=== PATIENT | male | born 1940 | race Caucasian/White ===

== ENCOUNTER 2022-07-05 05:04 | Emergency (ER) | payer MEDICARE, MEDICAID, SELFPAY ==
[2022-07-05] VITALS (7 sets, daily range): BP systolic 122–159; BP diastolic 81–91; PULSE 101–120; RESP 12–25; TEMP 37.6; O2SAT 91–94; BMI 26.6
--- NOTE | 2022-07-05 05:09 | CTR_ITS ---
PROCEDURE INFORMATION: Exam: CT Cervical Spine Without Contrast Exam date and time: 07/05/2022 5:41 AM Age: 81 years old Clinical indication: Injury or trauma; Fall; Blunt trauma TECHNIQUE: Imaging protocol: Computed tomography of the cervical spine without contrast. Radiation optimization: All CT scans at this facility use at least one of these dose optimization techniques: automated exposure control; mA and/or kV adjustment per patient size (includes targeted exams where dose is matched to clinical indication); or iterative reconstruction. COMPARISON: CT head wo con* [id number] 07/05/2022 5:38 AM RADIATION DOSE METRICS: Total DLP (mGy-cm): 277.17 FINDINGS: Bones/joints: No acute fracture. Normal alignment. No significant disc protrusion. No severe spinal canal stenosis. Lungs: Lung apices are normal. Soft tissues: The prevertebral soft tissues are within normal limits. 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 This would be better evaluated sonographically. CT/CT cervical spin wo con* [id number] IMPRESSION: No acute findings.
--- NOTE | 2022-07-05 05:09 | CTR_ITS ---
PROCEDURE INFORMATION: Exam: CT Head Without Contrast Exam date and time: 07/05/2022 5:38 AM Age: 81 years old Clinical indication: Injury or trauma; Fall; Blunt trauma (contusions or hematomas); Consciousness not specified TECHNIQUE: Imaging protocol: Computed tomography of the head without contrast. Radiation optimization: All CT scans at this facility use at least one of these dose optimization techniques: automated exposure control; mA and/or kV adjustment per patient size (includes targeted exams where dose is matched to clinical indication); or iterative reconstruction. COMPARISON: No relevant prior studies available. RADIATION DOSE METRICS: Total DLP (mGy-cm): 1373.48 FINDINGS: Brain: There is no acute intracranial hemorrhage or mass effect. Mild diffuse volume loss is within the range of normal for patient age. There are small vessel ischemic changes within the periventricular and subcortical white matter, but the normal wolff/white matter delineation is maintained. 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 Cerebral ventricles: No ventriculomegaly. Paranasal sinuses: There is mild right sphenoid sinus mucosal thickening. There is polypoid mucosal thickening within the left sphenoid sinus. Mastoid air cells: Visualized mastoid air cells are well aerated. Bones/joints: Unremarkable. No acute fracture. Soft tissues: Unremarkable. CT/CT head wo con* [id number] IMPRESSION: No acute hemorrhage or calvarial fracture.
--- NOTE | 2022-07-05 05:10 | XRR_ITS ---
PROCEDURE INFORMATION: Exam: XR Chest Exam date and time: 07/05/2022 5:55 AM Age: 81 years old Clinical indication: Cough TECHNIQUE: Imaging protocol: Radiologic exam of the chest. Views: 1 view. COMPARISON: CT cervical spin wo con* [id number] 07/05/2022 5:41 AM FINDINGS: Lungs: There is a benign calcified granuloma in the left lung.. No consolidation. Pleural spaces: Unremarkable. No pleural effusion. No pneumothorax. Heart/Mediastinum: Unremarkable. No cardiomegaly. Bones/joints: Unremarkable. XR/XR chest 1V portable [id number] IMPRESSION: No acute findings.
--- NOTE | 2022-07-05 05:12 | W.ED.FALL ---
Documented by User: Kevon Pantoja MD 07/05/22 05:18 HPI - Fall General: Chief Complaint: Fall Stated Complaint: Fall,AMS Time Seen by Provider: 07/05/22 05:09 Source: EMS Mode of arrival: EMS Limitations: altered mental status History of Present Illness: 81-year-old male that per EMS lives at home with family family states he has been having a gradual decline over the last month or 2 with increasing confusion states he has had increasing weakness as well and a decreased appetite he had a fall this morning just before arrival complains of headache and neck pain from the fall no other injuries he has had a slight cough with low-grade fever Review of Systems General: Reports: ROS unobtainable due to mental status PFSH ED PFSH: Medical History (Updated 07/05/22 @ 10:59 by Kike Serrano DO) No pertinent past medical history Social History (Updated 07/05/22 @ 05:12 by Kevon Pantoja MD) Substance/Drug Use: never Physical Exam Const: COMMON NORMALS: negative for patient oriented x3 HENMT: COMMON NORMALS: normocephalic and atraumatic HEAD & SCALP: normocephalic and atraumatic Eye: COMMON NORMALS: Equal, round and reactive pupils present and EOMs intact bilaterally PUPIL: Yes Equal, round and reactive pupils present Neck/C-Spine: COMMON NORMALS: full ROM and supple Chest: COMMONS NORMALS: normal inspection of the chest and normal palpation of entire chest wall Resp: COMMON NORMALS: normal respiratory effort, No retractions, No use of accessory muscles and clear to auscultation bilaterally AUSCULTATION: clear to auscultation bilaterally Cardio: COMMON NORMALS: No murmurs present (Cardio) RATE: tachycardic RHYTHM: abnormal rhythm irregularly irregular GI: COMMON NORMALS: Normal to inspection, nondistended, normoactive bowel sounds present, Soft to palpation, non-tender and no masses PALPATION: Yes Soft to palpation Extremity: COMMON NORMALS: normal to inspection and full ROM Neuro: COMMON NORMALS: moves all extremities and no focal motor deficits; negative for patient oriented x3 Psych: COMMON NORMALS: cooperative; negative for mental status grossly normal Skin: COMMON NORMALS: no rashes or lesions noted and no wounds GENERAL SKIN EXAM: no rashes or lesions noted Course Vital Signs: Vital signs: Vital Signs Temperature 99.6 F 01/01/23 05:06 Pulse Rate 101 H 07/05/22 07:30 Respiratory Rate 20 H 07/05/22 07:30 Blood Pressure 122/81 07/05/22 07:30 Pulse Oximetry 93 07/05/22 07:30 Oxygen Delivery Me thod 07/05/22 07:30 MDM - Fall Lab Data 07/05/22 05:15 07/05/22 05:15 Radiology Impressions Cervical Spine CT 07/05/22 05:09 IMPRESSION: No acute findings. Head CT 07/05/22 05:09 IMPRESSION: No acute hemorrhage or calvarial fracture. Chest X-Ray 07/05/22 05:10 IMPRESSION: No acute findings. Laboratory Results WBC 10.2 10^3/uL (4.0-10.0) H 07/05/22 05:15 RBC 4.76 10^6/uL (4.1-5.3) 07/05/22 05:15 Hgb 13.3 g/dL (11.7-16.6) 07/05/22 05:15 Hct 40.5 % (42.0-52.0) L 07/05/22 05:15 MCV 85.1 fl (80-94) 07/05/22 05:15 MCH 27.9 pg (28.0-34.0) L 07/05/22 05:15 MCHC 32.8 g/dL (30.0-36.0) 07/05/22 05:15 RDW 12.4 % (12.1-15.1) 07/05/22 05:15 Plt Count 308 10^3/cmm (130-400) 07/05/22 05:15 MPV 8.7 fL (7.4-10.4) 07/05/22 05:15 Neut % (Auto) 81.6 % 07/05/22 05:15 Lymph % (Auto) 6.6 % 07/05/22 05:15 Grainger % (Auto) 9.1 % 07/05/22 05:15 Eos % (Auto) 0.0 % 07/05/22 05:15 Baso % (Auto) 0.3 % 07/05/22 05:15 Neut # (Auto) 8.30 10^3/uL (1.8-7.7) H 07/05/22 05:15 Lymph # (Auto) 0.7 10^3/uL (0.8-4.8) L 07/05/22 05:15 Grainger # (Auto) 0.9 10^3/uL (0.2-0.9) 07/05/22 05:15 Eos # (Auto) 0.0 10^3/uL (0.0-0.8) 07/05/22 05:15 Baso # (Auto) 0.0 10^3/uL (0.0-0.1) 07/05/22 05:15 Nucleated RBC % (auto) 0 % 07/05/22 05:15 Nucleated RBCs # 0.0 /100WBC 07/05/22 05:15 PT 15.60 SECONDS (12.1-14.9) H 07/05/22 05:15 INR 1.20 (0.8-1.2) 07/05/22 05:15 Sodium 128 mmol/L (136-145) L 07/05/22 05:15 Potassium 3.7 mmol/L (3.5-5.1) 07/05/22 05:15 Chloride 94 mmol/L (98-107) L 07/05/22 05:15 Carbon Dioxide 22 mmol/L (22-29) 07/05/22 05:15 Anion Gap 15.7 (5-19) 07/05/22 05:15 BUN 12 mg/dL (8-23) 07/05/22 05:15 Creatinine 0.7 mg/dL (0.7-1.2) 07/05/22 05:15 GFR Calculation Not Reportable 07/05/22 05:15 Glucose 111 mg/dL (65-115) 07/05/22 05:15 POC Glucose 103 mg/dL (70-110) 07/05/22 06:01 Calculated Osmolality 266 mOsm/kg (285-295) L 07/05/22 05:15 Lactate 1.5 mmol/L (0.5-2.2) 07/05/22 05:15 Calcium 8.4 mg/dL (8.5-10.5) L 07/05/22 05:15 Total Bilirubin 0.8 mg/dL (0.15-1.2) 07/05/22 05:15 AST 31 U/L (0-40) 07/05/22 05:15 ALT 23 U/L (0-41) 07/05/22 05:15 Alkaline Phosphatase 65 U/L (40-130) 07/05/22 05:15 Total Protein 6.2 g/dL (6.6-8.7) L 07/05/22 05:15 Albumin 3.4 g/dL (3.5-5.2) L 07/05/22 05:15 Globulin 2.8 g/dL (1.3-4.6) 07/05/22 05:15 Urine Color Yellow (Yellow) 07/05/22 08:10 Urine Appearance Clear (CLEAR) 07/05/22 08:10 Urine pH 6 (5-7) 07/05/22 08:10 Ur Specific Walton 1.015 (1.005-1.030) 07/05/22 08:10 Urine Protein Trace (Negative) 07/05/22 08:10 Urine Glucose (UA) Norm (Normal) 07/05/22 08:10 Urine Ketones 2+ (Negative) H 07/05/22 08:10 Urine Blood 2+ (Negative) H 07/05/22 08:10 Urine Nitrate Negative (Negative) 07/05/22 08:10 Urine Bilirubin Neg (Negative) 07/05/22 08:10 Urine Urobilinogen 8 mg/dL (Negative) H 07/05/22 08:10 Ur Leukocyte Esterase Negative (Negative) 07/05/22 08:10 Urine RBC 5-10 /hpf (0-2) H 07/05/22 08:10 Urine WBC 0-4 /hpf (0-5) H 07/05/22 08:10 Ur Squamous Epith Cells 0-4 /hpf (0-5) H 07/05/22 08:10 Amorphous Sediment Not Reportable 07/05/22 08:10 Urine Bacteria 1+ /hpf (NONE) H 07/05/22 08:10 Hyaline Casts 0-4 /lpf H 07/05/22 08:10 Urine Mucus 1+ /hpf 07/05/22 08:10 Influenza Type A Ag negative (Negative) 07/05/22 05:58 Influenza Type B Ag negative (Negative) 07/05/22 05:58 SARS-CoV-2 Ag (Rapid) negative (Negative) 07/05/22 05:58 EKG Data EKG 1: I personally reviewed and interpreted this EKG as follows: EKG interpretation date: 07/05/22 EKG interpretation time: 05:12 Interpretation: atrial flutter hr [address] or t wave abnormalities Discharge Plan Discharge Patient Disposition: Home Clinical Impression: Urinary tract infection, Frailty, Ground-level fall, Hyponatremia Prescriptions: New doxycycline hyclate 100 mg tablet 100 mg PO BID 10 Days Qty: 20 0RF Discharge Orders: Discharge ED (Routine); Ordered 07/05/22 Ordered By: Kike Serrano Referrals: Jhon Hale MD [Primary Care Provider] - Discharge Diet: Advance as tolerated and Regular Discharge Activity: Increase activity as tolerated and Use walker/crutches as instructed Patient Instructions: Opioid Safety, Pain Management Activity Restrictions/Additional Instructions: As we discussed we did not find anything of concern on your images of your head and neck that may have resulted from your fall. We also discussed with you potential continued observation in the hospital versus manage your condition at home and you have decided to go home. We have provided prescription for antibiotics to take for the next 10 days. We recommend using a cane or walker to help with your ambulation until you gain strength and mobility. If it anytime you develop worsening symptoms, other concerns return to this or the nearest emergency department. We recommend you eating a regular diet and salting your food at the table to help add extra sodium to your diet. Drink at least 2 quarts of water daily. Follow-up with your physician in the next 10-14 days. Coding Level of Care Code ED Supervisor Photocomposition for Chg Fwd Exam Comprehensive Documented by User: Kike Serrano DO 07/05/22 10:59 HPI - Fall General: Chief Complaint: Fall Stated Complaint: Fall,AMS Time Seen by Provider: 07/05/22 05:09 [facility] ED PFSH: Medical History (Updated 07/05/22 @ 10:59 by Kike eSrrano DO) No pertinent past medical history Social History (Updated 07/05/22 @ 05:12 by Kevon Pantoja MD) Substance/Drug Use: never Course ED course: Assumed care of this patient from Dr. Pantoja.. We reviewed his presentation and pending work-up. Reevaluation(s): Reevaluation #1: My independent review of his CT scan of his cervical spine did not reveal any obvious fracture etc. so cervical collar was removed. I did a interview of the patient and his family and had a cursory examination without any focal findings. I discussed that we are waiting on radiology interpretations etc. Appears to be hyponatremic and has had general decline and will likely need further observation and evaluation but we still waiting on his imaging results. Family reports that he is not been of the care physician for some time and is refused to seek additional medical care. He states that he has had no symptoms of focal weakness, abnormal mentation, difficulty with speech etc. Time: 07:54 Reevaluation #2: Patient remained stable alert and was appropriately interactive. No acute or new changes on repeat examination. Family remained in the room and very attentive to him. Time: 10:54 Vital Signs: Vital signs: Vital Signs Temperature 99.6 F 07/05/22 05:06 Pulse Rate 101 H 07/05/22 07:30 Respiratory Rate 20 H 07/05/22 07:30 Blood Pressure 122/81 07/05/22 07:30 Pulse Oximetry 93 07/05/22 07:30 Oxygen Delivery Me thod 07/05/22 07:30 MDM - Fall Medical Decision Making This gentleman who arrived this morning after sustaining a fall but is had preceding a general decline over several weeks according to family. Evaluation here did not reveal any focal physical exam findings and his imaging studies were reviewed assuring without any evidence of intracranial injury, hemorrhage etc. or cervical spine injury. Additional studies here revealed he had mild hyponatremia without any obvious volume depletion. BUN/creatinine ratio. His urinalysis did suggest a possible low-grade urinary tract infection. No evidence of influenza COVID-19 etc. I discussed observation with patient and family continuation of reassessment. They acknowledged the risks and benefits of continued observation versus managing his condition at home and preferred to do the latter. This was in concert with the patient as well as his family members. I again reemphasized the meaning uncertainty of exact etiology of his decline but they voiced understanding and were very appreciative of care and would did agree to return should he not do well. Medical Records I reviewed the patient's medical records. Lab Data I reviewed the patient's lab results. 07/05/22 05:15 07/05/22 05:15 Radiology Impressions Cervical Spine CT 07/05/22 05:09 IMPRESSION: No acute findings. Head CT 07/05/22 05:09 IMPRESSION: No acute hemorrhage or calvarial fracture. Chest X-Ray 07/05/22 05:10 IMPRESSION: No acute findings. Laboratory Results WBC 10.2 10^3/uL (4.0-10.0) H 07/05/22 05:15 RBC 4.76 10^6/uL (4.1-5.3) 07/05/22 05:15 Hgb 13.3 g/dL (11.7-16.6) 07/05/22 05:15 Hct 40.5 % (42.0-52.0) L 07/05/22 05:15 MCV 85.1 fl (80-94) 07/05/22 05:15 MCH 27.9 pg (28.0-34.0) L 07/05/22 05:15 MCHC 32.8 g/dL (30.0-36.0) 07/05/22 05:15 RDW 12.4 % (12.1-15.1) 07/05/22 05:15 Plt Count 308 10^3/cmm (130-400) 07/05/22 05:15 MPV 8.7 fL (7.4-10.4) 07/05/22 05:15 Neut % (Auto) 81.6 % 07/05/22 05:15 Lymph % (Auto) 6.6 % 07/05/22 05:15 Grainger % (Auto) 9.1 % 07/05/22 05:15 Eos % (Auto) 0.0 % 07/05/22 05:15 Baso % (Auto) 0.3 % 07/05/22 05:15 Neut # (Auto) 8.30 10^3/uL (1.8-7.7) H 07/05/22 05:15 Lymph # (Auto) 0.7 10^3/uL (0.8-4.8) L 07/05/22 05:15 Grainger # (Auto) 0.9 10^3/uL (0.2-0.9) 07/05/22 05:15 Eos # (Auto) 0.0 10^3/uL (0.0-0.8) 07/05/22 05:15 Baso # (Auto) 0.0 10^3/uL (0.0-0.1) 07/05/22 05:15 Nucleated RBC % (auto) 0 % 07/05/22 05:15 Nucleated RBCs # 0.0 /100WBC 07/05/22 05:15 PT 15.60 SECONDS (12.1-14.9) H 07/05/22 05:15 INR 1.20 (0.8-1.2) 07/05/22 05:15 Sodium 128 mmol/L (136-145) L 07/05/22 05:15 Potassium 3.7 mmol/L (3.5-5.1) 07/05/22 05:15 Chloride 94 mmol/L (98-107) L 07/05/22 05:15 Carbon Dioxide 22 mmol/L (22-29) 07/05/22 05:15 Anion Gap 15.7 (5-19) 07/05/22 05:15 BUN 12 mg/dL (8-23) 07/05/22 05:15 Creatinine 0.7 mg/dL (0.7-1.2) 07/05/22 05:15 GFR Calculation Not Reportable 07/05/22 05:15 Glucose 111 mg/dL (65-115) 07/05/22 05:15 POC Glucose 103 mg/dL (70-110) 07/05/22 06:01 Calculated Osmolality 266 mOsm/kg (285-295) L 07/05/22 05:15 Lactate 1.5 mmol/L (0.5-2.2) 07/05/22 05:15 Calcium 8.4 mg/dL (8.5-10.5) L 07/05/22 05:15 Total Bilirubin 0.8 mg/dL (0.15-1.2) 07/05/22 05:15 AST 31 U/L (0-40) 07/05/22 05:15 ALT 23 U/L (0-41) 07/05/22 05:15 Alkaline Phosphatase 65 U/L (40-130) 07/05/22 05:15 Total Protein 6.2 g/dL (6.6-8.7) L 07/05/22 05:15 Albumin 3.4 g/dL (3.5-5.2) L 07/05/22 05:15 Globulin 2.8 g/dL (1.3-4.6) 07/05/22 05:15 Urine Color Yellow (Yellow) 07/05/22 08:10 Urine Appearance Clear (CLEAR) 07/05/22 08:10 Urine pH 6 (5-7) 07/05/22 08:10 Ur Specific [place] 1.015 (1.005-1.030) 07/05/22 08:10 Urine Protein Trace (Negative) 07/05/22 08:10 Urine Glucose (UA) Norm (Normal) 07/05/22 08:10 Urine Ketones 2+ (Negative) H 07/05/22 08:10 Urine Blood 2+ (Negative) H 07/05/22 08:10 Urine Nitrate Negative (Negative) 07/05/22 08:10 Urine Bilirubin Neg (Negative) 07/05/22 08:10 Urine Urobilinogen 8 mg/dL (Negative) H 07/05/22 08:10 Ur Leukocyte Esterase Negative (Negative) 07/05/22 08:10 Urine RBC 5-10 /hpf (0-2) H 07/05/22 08:10 Urine WBC 0-4 /hpf (0-5) H 07/05/22 08:10 Ur Squamous Epith Cells 0-4 /hpf (0-5) H 07/05/22 08:10 Amorphous Sediment Not Reportable 07/05/22 08:10 Urine Bacteria 1+ /hpf (NONE) H 07/05/22 08:10 Hyaline Casts 0-4 /lpf H 07/05/22 08:10 Urine Mucus 1+ /hpf 07/05/22 08:10 Influenza Type A Ag negative (Negative) 07/05/22 05:58 Influenza Type B Ag negative (Negative) 07/05/22 05:58 SARS-CoV-2 Ag (Rapid) negative (Negative) 07/05/22 05:58 Discharge Plan Discharge Patient Disposition: Home Clinical Impression: Urinary tract infection, Frailty, Ground-level fall, Hyponatremia Prescriptions: New doxycycline hyclate 100 mg tablet 100 mg PO BID 10 Days Qty: 20 0RF Discharge Orders: Discharge ED (Routine); Ordered 07/05/22 Ordered By: Kike Serrano Referrals: Jhon Hale MD [Primary Care Provider] - Discharge Diet: Advance as tolerated and Regular Discharge Activity: Increase activity as tolerated and Use walker/crutches as instructed Patient Instructions: Opioid Safety, Pain Management Activity Restrictions/Additional Instructions: As we discussed we did not find anything of concern on your images of your head and neck that may have resulted from your fall. We also discussed with you potential continued observation in the hospital versus manage your condition at home and you have decided to go home. We have provided prescription for antibiotics to take for the next 10 days. We recommend using a cane or walker to help with your ambulation until you gain strength and mobility. If it anytime you develop worsening symptoms, other concerns return to this or the nearest emergency department. We recommend you eating a regular diet and salting your food at the table to help add extra sodium to your diet. Drink at least 2 quarts of water daily. Follow-up with your physician in the next 10-14 days. Coding Level of Care Code ED Supervisor Photocomposition for [employer]dom[employer] Fwmarta Exam Comprehensive
[2022-07-05 05:26] LABS: Basophils % 0.3 %; Hematocrit 40.5 % (42.0-52.0); Hemoglobin 13.3 g/dL (11.7-16.6); Lymphocytes # 0.7 10^3/uL (0.8-4.8); Lymphocytes % 6.6 %; Mean Corpuscular HGB Conc 32.8 g/dL (30.0-36.0); Mean Corpuscular Hemoglobin 27.9 pg (28.0-34.0); Mean Corpuscular Volume 85.1 fl (80-94); Mean Platelet Volume 8.7 fL (7.4-10.4); Monocytes # 0.9 10^3/uL (0.2-0.9); Monocytes % 9.1 %; Neutrophils % 81.6 %; Nucleated Red Blood Cells % 0 %; Platelet Count 308 10^3/cmm (130-400); Red Blood Count 4.76 10^6/uL (4.1-5.3); Red Cell Distribution Width 12.4 % (12.1-15.1); White Blood Count 10.2 10^3/uL (4.0-10.0)
[2022-07-05] MEDS: acetaminophen 325 mg Tablet 650 MG PO (05:34)
[2022-07-05] MEDS: sodium chloride 0.9% 1,000 ML 999 ML IV (05:34)
[2022-07-05 05:44] LABS: Alanine Aminotransferase 23 U/L (0-41); Albumin Level 3.4 g/dL (3.5-5.2); Alkaline Phosphatase 65 U/L (40-130); Aspartate Amino Transferase 31 U/L (0-40); Blood Urea Nitrogen 12 mg/dL (8-23); Calcium 8.4 mg/dL (8.5-10.5); Carbon Dioxide 22 mmol/L (22-29); Globulin 2.8 g/dL (1.3-4.6); Glucose 111 mg/dL (65-115); Total Bilirubin 0.8 mg/dL (0.15-1.2); Total Protein 6.2 g/dL (6.6-8.7)
[2022-07-05 05:45] LABS: Lactate (Lactic Acid level) 1.5 mmol/L (0.5-2.2)
[2022-07-05 06:05] LABS: Glucose Point of Care 103 mg/dL (70-110)
[2022-07-05 06:28] LABS: Influenza A by IFA negative (Negative); Influenza B by IFA negative (Negative); SARS Covid-2 Antigen negative (Negative)
[2022-07-05 06:33] LABS: Anion Gap 15.7 (5-19); Chloride 94 mmol/L (98-107); Osmolality Calculated 266 mOsm/kg (285-295); Potassium 3.7 mmol/L (3.5-5.1); Sodium 128 mmol/L (136-145)
--- NOTE | 2022-07-05 06:39 | ECG_ITS ---
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 Measurements Intervals [place] Rate: 105 P: 0 OR: 0 QRS: 57 QRSD: 145 T: 90 QT: 395 QTc: 523 Interpretive Statements Sinus tachycardia LEFT BUNDLE BRANCH BLOCK [120+ ms QRS DURATION, 80+ ms Q/S IN V1/V2, 85+ ms R IN I/aVL/V5/V6] No previous ECG available for comparison Electronically Signed On 07-05-2022 20:18:34 [employer] SALESPERSON by Thania Prado M.D. [id number]
--- NOTE | 2022-07-05 08:13 | PC.NURSE ---
PT PLACED ON CONTINUOUS NIBP, SPO2, AND CM
[2022-07-05 09:21] LABS: Add Urine Microscopic? YES; Bilirubin Urine Neg (Negative); Blood Urine 2+ (Negative); Glucose Urine UA Norm (Normal); Ketones Urine 2+ (Negative); Leukocyte Esterase Urine Negative (Negative); Nitrate Urine Negative (Negative); Protein Urine Trace (Negative); Specific Gravity, Urine 1.015 (1.005-1.030); Urine Appearance Clear (CLEAR); Urine Color Yellow (Yellow); Urobilinogen Urine 8 mg/dL (Negative); pH Urine 6 (5-7)
[2022-07-05 09:22] LABS: Bacteria Urine 1+ /hpf; Hyaline Casts Urine 0-4 /lpf; Mucus Urine 1+ /hpf; Squamous Epithelial Cell Urine 0-4 /hpf (0-5); WBC Urine 0-4 /hpf (0-5)
[2022-07-05] MEDS: cefTRIAXone 1,000 MG in sodium chloride 0.9% (plus) 50 ML 100 MG IV (10:57)
== END 2022-07-05 11:28 | disposition home or self-care (01) ==
PROVIDERS: Emergency Medicine; Emergency Provider Emergency Medicine; PCP Family Medicine
DX: N39.0 Urinary tract infection, site not specified (principal); R54 Age-related physical debility; E87.1 Hypo-osmolality and hyponatremia; W18.30XA Fall on same level, unspecified, initial encounter; Z20.822 Contact with and (suspected) exposure to COVID-19
CPT/HCPCS: 36415; 36416; 70450; 71045; 72125; 80053; 81001; 82962; 83605; 85025; 85610; 87040; 87426; 87804; 93005; 96361; 96374; 99285; J0696; J7030